=== PATIENT | male | born 1950 | race Caucasian/White ===

== ENCOUNTER 2021-02-26 09:34 | Day surgery (SDC) | payer MEDICARE, BC, SELFPAY ==
[2021-02-26] MEDS: LACTATED RINGERS 1,000 ML 200 ML IV (09:55)
[2021-02-26 09:56] VITALS: BP 119/77; PULSE 82; RESP 18; TEMP 36.5; O2SAT 98; BMI 20.4
--- NOTE | 2021-02-26 11:02 | PM.HP.1 ---
History of Present Illness History of Present Illness Date Patient Seen: 02/26/21 Time Patient Seen: 11:02 Chief complaint: SDC Narrative: The patient presents for colorectal sreening. Most recent colonoscopy 11 years ago normal, prior to this had colonic polyps. No personal or family history of colon cancer. On further history denies any recent gastrointestinal symptoms. No nausea, vomiting, abdominal pain, loss of appetite, unexplained weight loss, change in bowel habits, diarrhea, constipation, melena, hematochezia, or bright red blood per rectum. Patient History Surgical History History of cataract removal with insertion of prosthetic lens History of vasectomy Family & Social History Family History Brother Age: 65 High cholesterol Father Age: 90 Stroke High cholesterol Grandfather Heart disease Mother Hypertension Mental health problem Stroke Grandmother Heart disease Sister Age: 55 Thyroid cancer Social History: household members spouse Tobacco & Substance use: Smoking Status Never smoker alcohol intake frequency holiday/special occasion Substance Use Type does not use Meds Home Medications and Allergies Home Medications Medication Instructions Recorded Confirmed Type tamsulosin 0.4 mg capsule (Flomax) 0.4 mg PO QDAY #90 cap 11/08/16 02/26/21 Rx levothyroxine 25 mcg tablet 0.025 mg PO QAM #90 tab 03/11/17 02/26/21 Rx sodium,potassium,mag sulfates 17.5 See Rx Instructions PO .COMPLEX 01/11/21 02/26/21 Rx gram-3.13 gram-1.6 gram oral soln #354 ml (Suprep Bowel Prep Kit) Allergies Allergy/AdvReac Type Severity Reaction Status Date / Time lisinopril AdvReac Swelling Verified 02/26/21 09:47 of Lip/Tongue/Throat Review of Systems Review of Systems ROS: Yes All systems reviewed with the patient and are negative except as otherwise documented Exam Vital Signs (past 8 hours): - 02/26/21 09:56 Temperature 97.7 F Pulse Rate 82 Respiratory Rate 18 Blood Pressure 119/77 Pulse Oximetry 98 Oxygen Delivery Method Room Air Narrative Exam Narrative: GENERAL-well developed adult male, BMI 20 no acute distress HEENT-no scleral icterus, hearing intact NECK-no JVD, trachea midline CVS- regular rate, no peripheral edema RESP-unlabored respiratory effort, no audible wheezing GI-soft, nontender nondistended MSK-no cyanosis or clubbing, extremities without deformity SKIN-warm, dry NEURO-alert and oriented, no focal deficits PYSCH-Appropriate mood and affect Assessment & Plan Assessment & Plan narrative: The patient requires colorectal screening and colonoscopy is recommended. Technical details were discussed. Risks, benefits, alternatives explained. Risks including but not limited to myocardial infarction, aspiration, bleeding, pain, missed lesion, incomplete examination, need for further radiographic studies, colonic perforation, and need for major abdominal surgery were discussed. All questions were answered to their satisfaction, and they are in agreement with this plan.
[2021-02-26] MEDS: fentaNYL 250 MCG/5 ML INJ IV (11:13)
[2021-02-26] MEDS: MIDAZOLAM 5 MG/5 ML VIAL IV (11:23)
--- NOTE | 2021-02-26 11:34 | PM.OP.ENDO ---
Operative Date/Time/Diagnoses Date of procedure: 02/26/21 Time of procedure: 11:34 Pre-op diagnosis: Screening colonoscopy Post-op diagnosis: same Procedure & Clinicians Study performed: Colonoscopy Same procedure as scheduled: Yes Indications: Screening Surgeon: Carlo Peoples Procedure Notes Procedure in detail: Medications: Conscious sedation using 5mg IV midazolam and 100mcg IV of fentanyl The history and physical was performed/updated and the patient is ASA class is 2. The procedure was discussed in detail with the patient. Potential risks complications including infection, bleeding, missed diagnosis, perforation, need for surgery, and were explained. Their questions were answered and informed consent was obtained. Patient was brought to the procedure room and placed standard monitoring equipment. The patient's vital signs were monitored continuously throughout the entire procedure. Prior to starting time-out was performed. The patient was placed in the left lateral recumbent position. Procedural sedation was administered. Examination began with a thorough inspection of the perianal area there was no evidence of fissures, fistulae, external hemorrhoids or cutaneous malignancy. The colonoscopy scope was then placed into the anal canal and was advanced to the cecum, which was identified by the ileocecal valve, the appendiceal orifice and the confluence of the taenia. The scope was then slowly withdrawn examining colon thoroughly in all directions, irrigating it of any residual stool. FINDINGS 1. No masses or polyps 2. Normal healthy colon 3. Grade 1 internal hemorrhoids The patient tolerated the procedure well. They will be discharged once criteria are met. The prep was of good/excellent quality. The withdrawl time was 6 minutes. The sedation time was 20 minutes. Specimen(s): none sent Complications: none Impression: normal colonoscopy Post-procedure Recommendations: Colonscopy in 10 years Disposition: same day surgery
[2021-02-26 11:39] VITALS: BP 105/65; PULSE 62; RESP 14; TEMP 36.8; O2SAT 95
[2021-02-26 11:42] VITALS: PULSE 71; RESP 16; O2SAT 94
[2021-02-26 11:44] VITALS: BP 99/65; PULSE 68; RESP 14; TEMP 36.8; O2SAT 95
== END 2021-02-26 12:03 | disposition home or self-care (01) ==
PROVIDERS: PCP Family Medicine; Referring Provider Surgery; Visit Provider Surgery
PROC: 0DJD8ZZ Inspection of Lower Intestinal Tract, Via Natural or Artificial Opening Endoscopic (ICD-10-PCS; CPT 45378; principal; 2021-02-26 10:45)
DX: Z12.11 Encounter for screening for malignant neoplasm of colon (principal); Z86.010 Personal history of colon polyps; K64.0 First degree hemorrhoids
CPT/HCPCS: G0105; 99152; J2250; J3010

== ENCOUNTER → 2023-10-29 15:18 | Outpatient (CLI) | payer MEDICARE, BC, SELFPAY ==
--- NOTE | 2023-10-29 15:20 | DI.MRI.S_ITS ---
PROCEDURE: MR PELVIC PROSTATE PROTOCOL INDICATIONS: Elevated PSA TECHNIQUE: Coronal HASTE, axial T1 FSE with fat saturation, 3-plane nonbreath-hold T2 FSE. After the administration of contrast, dynamic axial, delayed axial and coronal VIBE or 2-D FLASH with fat saturation through the pelvis. Diffusion weighted imaging and ADC was performed. COMPARISON: None. FINDINGS: Image quality: Diffusion weighted and dynamic contrast enhanced images are diagnostic. Prostate: Gland size is 3.6 x 4.4 x 4.3 cm; ellipsoid gland volume is 35 mL. Lesion 1: Location: Right mid depth lateral transition zone at the mid gland level, on axial series four, image 12 and ADC series 24, image 12. Size: 1.1 cm. Measured on ADC map. T2W signal: Isointense to remainder of transition zone, much of which appears diffusely mildly hypointense. There is suggestion of partial encapsulation on axial images. DWI signal: Moderately hyperintense ADC signal: Markedly hypointense Enhancement: No Extracapsular extension: No PI-RADS score: Two, probable BPH nodule. Genitourinary system: Bladder wall thickness is normal. Distal ureters are non distended. Bowel and peritoneum: No pathologic free pelvic fluid. Inferior colon and small bowel loops are normal in caliber. Nodes and vessels: No pelvic or inguinal adenopathy by size criteria. Iliac vessels are normal in caliber. Soft tissues: No inguinal hernias. Bones: Marrow demonstrates normal overall signal, without lesions to suggest metastases. IMPRESSION: There is a single 1.1 cm right transition zone lesion which demonstrates unique restricted diffusion, but no significant T2 hypointensity. Given possible partial encapsulation, this is most likely a BPH nodule, PI-RADS two. Given overall mild diffuse T2 hypointensity in a normal-sized gland, multi quadrant TRUS biopsies may be useful. No pelvic lymphadenopathy by size criteria. No aggressive osseous abnormality. Dictated by: Yoly Dahl M.D. on 10/30/2023 at 12:17 Approved by: Yoly Dahl M.D. on 10/30/2023 at 12:33
== END ==
LOC: MRI 15:19
PROVIDERS: PCP Family Medicine; Referring Provider Specialist; Visit Provider Specialist
DX: R97.20 Elevated prostate specific antigen [PSA] (principal)
CPT/HCPCS: 72197; A9579

== ENCOUNTER 2024-04-29 10:28 | Inpatient (IN) | payer MEDICARE, BC, SELFPAY ==
[2024-04-26 11:19] VITALS: BMI 20.3
[2024-04-27] VITALS (13 sets, daily range): BP systolic 108–159; BP diastolic 64–102; PULSE 72–93; RESP 2–14; TEMP 36.4–36.6; O2SAT 92–99; BMI 20.3
--- NOTE | 2024-04-27 | PATH_ITS ---
[facility] Accession Number: [id number] No. of containers..01 Tissue . 01 Material submitted: . prostate - PROSTATE CHIPS . 01 Diagnosis: PROSTATE CHIPS (3 GRAMS), TRANSURETHRAL RESECTION: Benign prostatic hyperplasia. MRV 04/29/2024 1632 Local . 01 Electronically signed: . Bettina Rivera MD, Pathologist NPI- [id number] . 01 Gross description: . Received in formalin with two patient identifiers and prostate chips, are multiple [place] rubbery soft tissue fragments admixed with hemorrhagic material (3 grams, 5.0 x 3.1 x 1.3 cm). No lesions are identified. The specimen is submitted entirely in A1-A4. ([id number]) /MRV 04/28/2024 1418 Local . 01 Pathologist provided ICD-10: N40.0 . 01 CPT . 137015 Specimen Comment: A courtesy copy of this report has been sent to [phone] Performed at: [address] [address], [place], [place] [id number] MD Flo Turner MD Phone: [phone]
--- NOTE | 2024-04-27 13:03 | PM.PREOP ---
Pre-operative Note COVID-19 COVID-19 status: Not tested Interval Note History & Physical reviewed/Exam performed by Physician: Yes Changes to H&P: No
[2024-04-27] MEDS: CEFAZOLIN 2 GM/100 ML PREMIX 100 ML IV (14:10)
--- NOTE | 2024-04-27 14:23 | SUR.OPER ---
Lithotomy on padded OR bed, head on pillow, arms secured on padded arm boards at <90 degrees abduction. Legs secured in padded yellow fins stirrups.
--- NOTE | 2024-04-27 15:49 | SUR.PREOP ---
Apologized to patient for delay. Warm blankets provided.
[2024-04-27] MEDS: LACTATED RINGERS 1,000 ML 21 ML IV (16:15)
--- NOTE | 2024-04-27 18:09 | SUR.PREOP ---
Went to waiting room to update regarding surgical complication and delay. V/U. Warm blankets given to and provided some ice water.
[2024-04-27 20:28] LABS: Hematocrit 42.1 % (41-53); Hemoglobin 14.1 g/dL (13.5-17.5); Mean Corpuscular HGB Conc 33.5 % (30-36); Mean Corpuscular Hemoglobin 31.8 PG (26-34); Mean Corpuscular Volume 94.8 fL (80-100); Platelet Count 159 X10^3/uL (150-400); Red Blood Cell Count 4.44 X10^6/uL (4.5-5.9); Red Cell Distribution Width 13.6 % (11.6-14.8); White Blood Cell Count 14.6 X10^3/uL (4.5-11.0)
[2024-04-27] MEDS: ACETAMINOPHEN IV 1,000 MG/100 ML VIAL 400 MG IV (20:38)
[2024-04-27 20:41] LABS: BUN Creatinine Ratio 14.6 (6-22); Blood Urea Nitrogen 13 mg/dL (9-20); Calcium 7.3 mg/dL (8.4-10.2); Carbon Dioxide 20 mmol/L (22-32); Chloride 111 mmol/L (98-107); Estimated Glomerular Filt Rate > 60 mL/min (>60); Glucose 131 mg/dL (80-110); Sodium 138 mmol/L (137-145)
[2024-04-27 20:44] LABS: HEMOLYSIS 121 (0-50)
[2024-04-27] MEDS: ONDANSETRON 4 MG/2 ML INJ IV (20:47)
[2024-04-27] MEDS: HYDROMORPHONE 1 MG INJ 0.5 MG IV (20:49)
[2024-04-27] MEDS: MORPHINE 2 MG/ML INJ IV (22:03)
--- NOTE | 2024-04-27 22:03 | PM.OP.1 ---
Procedure & Clinicians Procedure: 1. Aquablation 2. Transrectal ultrasound of prostate 3. Transurethral resection/fulguration of prostate 4. Exploratory laparotomy with evacuation of peritoneal fluid and repair of bladder perforation Same procedure as scheduled: No (At end of Aquablation bladder perforation was discovered) Indications: This 74-year-old male presented with complaints of profound bladder outlet obstruction, benign prostatic hyperplasia with lower urinary tract symptoms. He was worked up and found to be a excellent candidate for Aquablation. Details of his workup is outlined in the history of present illness of his admission H&P. With regard to the exploratory laparotomy and evacuation of peritoneal fluid with repair of bladder perforation at the end of the Aquablation the irrigation characteristics changed and with investigation a bladder perforation was noted on the posterior lateral left bladder. The abdomen also appeared to be tense raising the Specter of an intraperitoneal perforation. There was no obvious inciting cause for the perforation. No difficulty with the procedure. Continuous-flow scopes were used throughout. Surgeon: Jorge Soria Bandoleer Straightener Stamper: Aki Hernandez Anesthesia Type: General Operative Notes Findings: Findings: Urethral meatus was normal urethra was normal along its length with normal mucosa. The sphincter was well coapted in the prostate exhibited trilobar obstructive character with some bulging into the bladder. The prostate had previously been measured at approximately 40 g. The ureteral orifices were normal position with clear efflux and at the end of Aquablation were intact and uninvolved. Prostatic fossa was also widely patent and hemostasis was good. As noted above as the procedure was ending prostate had been resected the irrigation characteristics that his the outflow seemed to change. A catheter was placed with the aid of a cath guide and it also did not irrigate as I expected therefore cystoscopy was performed and a perforation was noted in the posterolateral left slightly cephalad bladder. It was linear and proximally 2-2-1/2 cm in length running parallel to the cephalad caudad axis. At the time of exploratory laparotomy there was a preponderance of clear fluid in the peritoneum which was evacuated. There was no bloody fluid observed. And again with the bladder open the linear defect was noted and was obviously intraperitoneal. Closure Type: primary Specimen(s): none sent (Prostate chips) Prosthetic devices, grafts, tissues, transplants, or devices: 24 Macanese three-way 30 cc lucia hematuria catheter was left in place through the urethra prostate and into the bladder with 30 cc in the balloon. Estimated Blood Loss (mL): 100 Procedure in detail: Procedure in detail: After informed consent was obtained, the patient was identified and brought to the operating room where he is placed in a supine position on the table once there anesthesia was induced and maintained. Ensuring an adequate level of anesthesia the patient was transitioned to the lithotomy position where he was prepped for Transurethral procedure. After prepping, ensuring an adequate level of anesthesia, time-out, administration of IV antibiotics the truss stepper was mounted to the articulating arm which was secured to the OR bed. The ultrasound probe was then attached to the stepper. The patient then had 60 cc of ultrasound gel instilled within the rectum and the ultrasound probe was inserted. It was then checked for centering and alignment in both the transverse and sudden views. The bladder neck verumontanum and widest portion of the prostate were observed. With the ultrasound aligned centered in inappropriate position the patient was then draped in his sterile fashion. At this point the 24 Macanese aqua beam handpiece was inserted under direct vision through the urethra prostate and into the bladder where cystoscopy was performed. Asked the hand piece was inserted under live ultrasound the external sphincter verumontanum bladder neck were again observed and their position noted. The aqua beam handpiece was secured to the handpiece articulating arm. Confirmed alignment of the Aquablation handpiece and ultrasound probe to be parallel and colinear was performed. The Aquablation beam nozzle was centered and anterior to the bladder neck. The cystoscope was then retracted and the verumontanum and external sphincter once again visualized. The tip of the scope was positioned proximal to the external sphincter. The alignment of the ultrasound probe and Aquablation handpiece was once again confirmed and compression applied with a truss probe. Horizontal alignment of the handpiece water jet was then performed. The treatment zones were then planned using real-time ultrasound to visualize the contour shape and radial angles needed to treat the prostate. This was done in the transverse view. In the longitudinal view or sagittal view the aqua beam nozzle was identified and the position registered with the software. The length of treatment was also then. Again in the longitudinal the contours of resection were marked and treatment plan identified. And again the bladder neck and verumontanum were marked and confirmed in the treatment contour plan. With the Aquablation treatment plan in place ensuring the patient patient was not going to move the Aquablation resection was then started and completed with the veru zone sparing performed. Total time for this initial pass was approximately 2 minutes 39 seconds. A 2nd pass was performed with no change in the contour or radial angles. Again resection time was approximately 2 minutes 39 seconds. At this point the cystoscope was rolled forward to the tip of the aqua beam handpiece in the aqua beam handpiece was looked out. The resectoscope was then put in place under direct vision. Ellik evacuator was used to evacuate any clot. The level and position of the ureteral orifices were noted and the bladder neck was resected from approximately the 3 o'clock to 9 o'clock position points of bleeding controlled with the electrocautery. There appeared to be some anterior redundant tissue which was resected opening up the channel. Points of bleeding were controlled with the electrocautery. At this point Ellik evacuator was used to evacuate the chips and any remaining clot. The urine was clear to light pink in color. At this point the scope was again inserted and the ureteral orifices visualized appeared to be in good shape. And the scope was removed. The 22 Macanese hematuria catheter was passed through the free prostate under visualization with ultrasound and into the bladder with the balloon was filled with 45 cc of sterile saline. It was then irrigated it did not irrigate as I would expect. Therefore the catheter was removed and cystoscopy once again performed and at this point the defect or perforation was noted on the posterolateral left. I called Dr. Hernandez who came to the operating room in an expeditious fashion. The abdomen was inspected and appeared to be taught raising the suspicion of intraperitoneal fluid. Decision was made that we would need to open. The patient was undraped, shaved prepped and redraped in his sterile fashion. At this point a 20 Macanese team and tip catheter was placed into the bladder balloon filled with 10 cc of sterile water to facilitate identification of the bladder. Again ensuring an adequate level of anesthesia a lower abdominal midline incision was made and carried down through the layers of the abdominal wall in the midline. The fascia was then opened and the peritoneum carefully dissected off the posterior access of the rectus. Bookwalter retractor was put in place and points of bleeding controlled with the electrocautery. At this point due to the fluid in the abdomen it was determined that we would need to open the peritoneum and drain some of the fluid this was performed ensuring that no bowel was in the area. A new opening was made in a pool sucker inserted and clear fluid was evacuated. The peritoneal incision was extended and as much fluid is could be evacuated was evacuated. The bowel that had come out to the peritoneal opening was then returned to the intraperitoneal space in the peritoneum reapproximated with running 2-0 chromic gut suture. This significantly reduce the pressure in the abdomen. It should be noted throughout the Aquablation and at the end there were no changes in vital signs or signs of distress. At this point retractor was put in place and the peritoneum retracted in a cephalad fashion exposing the bladder. Then in a vertical fashion in the midline the bladder was opened. Retraction was once again put in place including Vicryl straight stay sutures and in the posterior bladder the linear defect was identified. It had smooth edges and was not bleeding. This defect was then reapproximated in a 2 layer fashion the detrusor was approximated with a running 2-0 Vicryl. And then the mucosa was imbricated over the top with a 2-0 chromic. Being satisfied with the closure and hemostasis and observing good urine output the retraction was readjusted and the detrusor in the midline which we had opened was reapproximated with a running 2-0 Vicryl in 2 layers. As the closure was performed the team and tip catheter was exchanged for a Lucia 24 Macanese three-way catheter. This was left in place in his closure was performed the balloon was filled with 30 cc of sterile water. Being satisfied with hemostasis and that all defects in the bladder had been closed at 1 of the Vicryl stay sutures there had been a small tear which was repaired with a [id number] of 2-0 Vicryl. Also at the proximal that is toward the bladder neck on the right lateral side was a persistent small defect in the detrusor which was also closed with an interrupted [id number] using 2-0 Vicryl. At this point the wound was irrigated. And attention turned to closure the fascia was reapproximated with a running looped 0 PDS from cephalad to the mid wound and from inferior caudad to the mid wound and then tied. No fascial defects were noted. The wound was once again irrigated and the subcutaneous tissues reapproximated with interrupted horizontal mattress of 3-0 Vicryl. Skin edges were reapproximated with anabella and dressing applied. The catheter was placed to gravity drainage and with all obvious difficulties repaired the patient was awakened transferred to the postanesthesia care unit for recovery. The patient will then be followed on the veras we will continue his Agrawal catheter for at least 3 weeks obtaining a cystogram. Complications: other (Bladder perforation) Post-operative Condition: stable Disposition: PACU Plan for aftercare: Once recovered in the PACU the patient will be transferred to the acute care for further postop recovery.
[2024-04-27] MEDS: LACTATED RINGERS 1,000 ML 42 ML IV (22:14)
[2024-04-27] MEDS: LACTATED RINGERS 1,000 ML 100 ML IV (22:45)
[2024-04-28] VITALS (9 sets, daily range): BP systolic 99–159; BP diastolic 57–97; PULSE 72–84; RESP 15–24; TEMP 36.1–37.9; O2SAT 94–99
[2024-04-28] MEDS: OXYBUTYNIN 5 MG TABLET PO (00:08)
[2024-04-28] MEDS: ONDANSETRON 4 MG/2 ML INJ IV (00:46)
[2024-04-28] MEDS: LEVOTHYROXINE 25 MCG TABLET PO (05:45)
[2024-04-28] MEDS: ACETAMINOPHEN 325 MG TABLET 650 MG PO ×3 (05:45→19:01)
[2024-04-28 06:15] LABS: Add Manual Diff / Slide Review NO; Basophils Absolute Auto 0 /uL (0-100); Basophils Percent Auto 0.1 % (0-2); Eosinophils Absolute Auto 0 /uL (0-450); Hematocrit 39.6 % (41-53); Hemoglobin 13.4 g/dL (13.5-17.5); Lymphocytes Absolute Auto 700 /uL (1100-4500); Lymphocytes Percent Auto 5.1 % (25-40); Mean Corpuscular HGB Conc 33.9 % (30-36); Mean Corpuscular Hemoglobin 31.8 PG (26-34); Mean Corpuscular Volume 93.7 fL (80-100); Monocytes Absolute Auto 1000 /uL (0-900); Neutrophils Absolute Auto 12500 /uL (1500-7000); Neutrophils Percent Auto 87.8 % (50-75); Platelet Count 166 X10^3/uL (150-400); Red Blood Cell Count 4.22 X10^6/uL (4.5-5.9); Red Cell Distribution Width 13.5 % (11.6-14.8); White Blood Cell Count 14.2 X10^3/uL (4.5-11.0)
[2024-04-28 06:31] LABS: BUN Creatinine Ratio 14.8 (6-22); Blood Urea Nitrogen 13 mg/dL (9-20); Calcium 7.6 mg/dL (8.4-10.2); Carbon Dioxide 20 mmol/L (22-32); Chloride 108 mmol/L (98-107); Estimated Glomerular Filt Rate > 60 mL/min (>60); Glucose 118 mg/dL (80-110); HEMOLYSIS < 15 (0-50); Sodium 136 mmol/L (137-145)
--- NOTE | 2024-04-28 07:36 | PC.NURSE ---
Received verbal confirmation that Albumin 12.5 g in 250 ml was given intraoperatively by both Dr Soria and RN Mariana Hanson, not documented in MAR.
--- NOTE | 2024-04-28 08:03 | P.PN_ITS ---
Subjective Subjective Date Patient Seen: 04/28/24 Time Patient Seen: 08:03 Interval history: Postop morning from Aquablation and repair of bladder perforation: 74-year-old male morning after the above reports that he has a little bit sore but feels well. Patient experience no nausea no vomiting. Is belching and feels he may have passed a little bit of gas. Patient has had clear liquids and by his 's report also has tolerated some applesauce and a bit of a brand muffin. His vital signs are stable and within normal limits. Laboratories show no significant unfavorable finding. Did discuss with him the events of yesterday and answered his questions. Is doing very well this morning. Exam Vital Signs (past 8 hours): - 04/28/24 00:10 04/28/24 00:40 04/28/24 06:00 Temperature 97 F L 98.8 F Pulse Rate 84 84 78 Respiratory Rate 16 20 Blood Pressure 159/97 H 159/97 H 114/70 Pulse Oximetry 98 98 99 Oxygen Flow Rate 0 0 0 Oxygen Delivery Method Room Air Oxygen Flow Rate 0 Narrative Exam Narrative: Exam: Patient is awake alert and oriented wearing corrective lenses lying in his bed appearing comfortable. Lungs slightly diminished breath sounds Cardiovascular exam: Regular rate and rhythm without murmur Abdominal exam: Soft with normal bowel sounds with some incisional tenderness, dressings in place clean dry. Agrawal catheter: With blush to perhaps slightly punch colored urine and adequate output. Extremities nontender Objective Labs 04/28/24 05:40 04/28/24 05:40 Labs: Laboratory Results - last 24 hr 04/27/24 04/28/24 20:20 05:40 WBC 14.6 H 14.2 H RBC 4.44 L 4.22 L Hgb 14.1 13.4 L Hct 42.1 39.6 L MCV 94.8 93.7 MCH 31.8 31.8 MCHC 33.5 33.9 RDW 13.6 13.5 Plt Count 159 166 Neut % (Auto) 87.8 H Lymph % (Auto) 5.1 L [place] % (Auto) 7.0 Eos % (Auto) 0.0 L Baso % (Auto) 0.1 Neut # (Auto) 86165 H Lymph # (Auto) 700 L [place] # (Auto) 1000 H Eos # (Auto) 0 Baso # (Auto) 0 Sodium 138 136 L Potassium 5.0 4.0 Chloride 111 H 108 H Carbon Dioxide 20 L 20 L BUN 13 13 Creatinine 0.89 0.88 Estimated GFR > 60 > 60 BUN/Creatinine Ratio 14.6 14.8 Glucose 131 H 118 H Calcium 7.3 L 7.6 L PFSH Medical History (Updated 04/28/24 @ 08:08 by Jorge Soria MD) Bladder outlet obstruction Elevated PSA BPH w urinary obs/LUTS Migraine Surgical History Hx of circumcision History of intraocular lens implant Hx of vitrectomy Hx of detached retina repair Hx of cystoscopy History of vasectomy History of cataract removal with insertion of prosthetic lens Family History Brother Age: 68 High cholesterol Father Age: 93 Stroke High cholesterol BPH (benign prostatic hyperplasia) Grandfather Heart disease Mother Hypertension Mental health problem Stroke Grandmother Heart disease Sister Age: 58 Thyroid cancer Social History marital status: number of children: 1 household members: spouse occupational status: other Smoking Status: Never smoker alcohol intake: current caffeine: Yes Type(s) of exercise: walking and bicycling frequency: daily Assessment & Plan Assessment and plan (1) BPH w urinary obs/LUTS: Status: Acute (2) Bladder perforation, intraoperative: Status: Acute Plan Assessment and plan: 1. Patient doing well postop morning. Vitals and laboratories in good condition. Pain well controlled. Good urine output of excellent color. 2. Plan: Incentive spirometry Regular diet Saline lock IV fluids Up out of bed and ambulate DVT prophylaxis Time-Based Coding :: [TOTAL MINUTES] spent with patient and on the chart (including review of chart, obtaining history, exam, reviewing outside data, placing orders, documenting exam and treatment plan, and counseling patient) on [DATE].
[2024-04-28] MEDS: OXYCODONE/ACETAMINOPHEN 5/325 TABLET 1 TAB PO (09:36)
[2024-04-28] MEDS: TAMSULOSIN 0.4 MG CAPSULE PO (09:36)
[2024-04-28] MEDS: MORPHINE 2 MG/ML INJ IV (11:39)
--- NOTE | 2024-04-28 14:07 | CM.DANOTE ---
Initial DCP Assessment Vist Note Reviewed EMR and team rounds for status updates. Met with pt and spouse at bedside to introduce self and role, pt was found to be alert/oriented, resting in bed, he made it clear he was not interested in engaging with this WHITEWASHER at this time. Pt lives independently at baseline with is in their own home on [address]. His will transport him back home once he has been medically cleared for home d/c, anticipated for 04/29/24. They deny any d/c assistance or needs at this time. Payor: Medicare Attending: Dr. Soria Pt is a 74 year-old M post-op day 1 from an aquablation procedure. He has a hx of an obstructing prostate and urinary retention. He did have a small complication during surgery in which his bladder was nicked, however he is otherwise doing well postoperatively. DCP will continue to monitor for any further d/c needs, he may need a medical ferry pass for the trip home, however it is encouraged that they make a reservation a head of time. Discharge Planning/Care Management CM Discharge Assessment Start: 04/28/24 14:04 Freq: Status: Active Protocol: Document 04/28/24 14:04 DPL (Rec: 04/28/24 14:06 DPL [id number]) Discharge Planning Assessment Assigned Dry End Tester KAREN Cohen Advance Directives? Yes Advance Directives on File No History Provided By Patient,Family Member,Medical Record Has Patient been admitted in last 30 No days? Prior Living Arrangements House Household Members spouse Type of transporation used prior to Drives own vehicle admit Independent with ADL's Yes Is patient alert and oriented? Yes Comment N/A Caregiver for Another No Comment OP Urology f/u Barriers to Discharge No Discharge Plan Home Referrals Initiated None needed Whiteboard Updated in Patient Room with Yes name and ext. # of Dry End Tester Review Status In Process Please Provide Date Initial DC 04/28/24 Assessment Was Performed Pre-Anesthesia Assessment Start: 04/26/24 11:19 Freq: Status: Active Protocol: Document 04/26/24 11:19 LB (Rec: 04/26/24 11:24 LB [id number]) Pre-Anesthesia Assessment PAC Comment 04/26/24 Chart review. Patient Information Reviewed Via Chart Review Diagnostic Results Urinalysis Comment 03/26/24 at . Primary Care Provider Stephanie Rossi Seen Specialist in Last 12 Months Yes Specialist Seen Urologist Primary Language Brazilian Preferred Language Brazilian Outside Physical Damage Appraiser Required No Height 170.18 cm Weight 58.967 kg Body Mass Index (BMI) 20.3 Anesthesia Review Requested No Cabinet And Trim Installer No Smoking Status Never smoker Hx Sleep Apnea No CPAP/BIPAP use not prescribed Currently Taking a Beta Krysten No Anti-Coagulant Therapy No Cardiac Testing No Hx Pacemaker/ICD No Cardiac Clearance Received Not Applicable Chronic UTI No Urinary Catheter Present No Diabetes No Presence of External or Internal Medical Yes: Bilat IOL. Devices Marital Status Lives With spouse Patient Discharge Plan Description Return Home Emergency Contact Name Luiza Mcmullen-Stonealysha - Emergency Contact Advance Directives? Yes Advance Directives on File No
[2024-04-28] MEDS: DOCUSATE 100 MG CAPSULE PO (21:25)
[2024-04-28] MEDS: OXYCODONE IR 5 MG TABLET PO (21:25)
[2024-04-28] MEDS: polyethylene glycoL 3350 17 GM POWD.PACK PO (21:25)
[2024-04-29 02:03] VITALS: BP 115/74; PULSE 69; RESP 20; TEMP 37.4; O2SAT 92
[2024-04-29] MEDS: OXYBUTYNIN 5 MG TABLET PO ×3 (03:30→18:27)
[2024-04-29] MEDS: OXYCODONE IR 5 MG TABLET PO (03:30)
[2024-04-29] MEDS: LEVOTHYROXINE 25 MCG TABLET PO (06:38)
--- NOTE | 2024-04-29 08:00 | P.PN_ITS ---
Subjective Subjective Date Patient Seen: 04/29/24 Time Patient Seen: 08:00 Interval history: Morning postop day 2: Patient reports that he had good night required a couple of pain pills last night but is finding that the pain is well controlled. Patient is now passing gas. Feels a little bit bloated. Has no increase in pain his vital signs have been stable and within normal limits. He is tolerating his diet so far and urine has cleared to a light pink and it appears that the urine output has been adequate. Patient has been ambulating using in his in his spirometer. We will see how things go and patient we will likely go home later today unless things change on exam abdomen is soft none tender except for incisional tenderness and normal bowel sounds. Extremities are nontender dressing is in place clean and dry in his incision appears intact. Exam Vital Signs (past 8 hours): - 04/29/24 02:03 Temperature 99.4 F Pulse Rate 69 Respiratory Rate 20 Blood Pressure 115/74 Pulse Oximetry 92 Oxygen Flow Rate 0 Oxygen Delivery Method Room Air Oxygen Flow Rate 0 Objective Labs 04/28/24 05:40 04/28/24 05:40 [facility] Medical History (Updated 04/28/24 @ 08:08 by Jorge Soria MD) Bladder outlet obstruction Elevated PSA BPH w urinary obs/LUTS Migraine Surgical History Hx of circumcision History of intraocular lens implant Hx of vitrectomy Hx of detached retina repair Hx of cystoscopy History of vasectomy History of cataract removal with insertion of prosthetic lens Family History Brother Age: 68 High cholesterol Father Age: 93 Stroke High cholesterol BPH (benign prostatic hyperplasia) Grandfather Heart disease Mother Hypertension Mental health problem Stroke Grandmother Heart disease Sister Age: 58 Thyroid cancer Social History marital status: number of children: 1 household members: spouse occupational status: other Smoking Status: Never smoker alcohol intake: current caffeine: Yes Type(s) of exercise: walking and bicycling frequency: daily Assessment & Plan Assessment and plan (1) Bladder outlet obstruction: Status: Acute (2) Bladder perforation, intraoperative: Status: Acute (3) BPH w urinary obs/LUTS: Status: Acute Plan Assessment and plan: Postop day 2. Patient doing well progressing as expected. We will increase ambulation today continue incentive spirometry. Patient is up and out of bed. We will check back later today and anticipate that the patient will likely be discharged to home. Instructions will be given at that time regarding the care of his incision in his Agrawal catheter which he will keep for 3 weeks. We will obtain a cystogram prior. Time-Based Coding :: [TOTAL MINUTES] spent with patient and on the chart (including review of chart, obtaining history, exam, reviewing outside data, placing orders, documenting exam and treatment plan, and counseling patient) on [DATE].
[2024-04-29] MEDS: polyethylene glycoL 3350 17 GM POWD.PACK PO (09:45)
[2024-04-29] MEDS: DOCUSATE 100 MG CAPSULE PO (09:45)
[2024-04-29] MEDS: ACETAMINOPHEN 325 MG TABLET 650 MG PO ×2 (09:45→15:43)
[2024-04-29] MEDS: TAMSULOSIN 0.4 MG CAPSULE PO (09:45)
[2024-04-29 12:09] VITALS: BP 149/90; PULSE 72; RESP 18; TEMP 37.7; O2SAT 95
--- NOTE | 2024-04-29 13:21 | CM.DPC ---
DCP Cont. Reviewed EMR and team rounds for status updates. Pt has been medically cleared for home d/c. No further d/c needs/assistance indicated at this time.
[2024-04-29 15:43] VITALS: TEMP 37.6
--- NOTE | 2024-04-29 16:57 | PM.DS.1 ---
History of Present Illness History of Present Illness Date Patient Seen: 04/29/24 Time Patient Seen: 16:57 Date of Onset of Symptoms: 04/27/24 Chief complaint: BPH lower urinary tract symptoms/bladder perforati Narrative: This 74-year-old male had benign prostatic hyperplasia lower urinary tract symptoms and presented for Aquablation. This appeared to go well however at the end of the procedure was discovered there was a bladder perforation and the patient underwent urgent/emergent exploratory laparotomy with repair of bladder perforation. He has been followed on the [place] and has progressed to the point where he could be discharged. At this point he has tolerating a regular diet, passing gas, has vital signs which are stable and within normal limits. He is ambulating without difficulty his pain is well controlled and his incision is intact. Patient will be discharged to home. Discharge Providers Provider Date of admission: 04/29/24 10:28 Discharge Date: 04/29/24 Primary care physician: Stephanie Rossi MD Discharge provider: Jorge Soria MD Summary Hospital Course Discharge Diagnosis: 1. Benign prostatic hyperplasia with lower urinary tract symptoms 2. Bladder perforation intraperitoneal requiring repair. Hospital Course: Again the patient was admitted to the hospital underwent Aquablation without incident with found to have at the end of the procedure a bladder perforation on the posterior left. Patient underwent laparotomy exploratory and repair of bladder laceration as well as evacuation of fluid from the peritoneal cavity. Patient was then followed on the [place] where he recovered. And starting with liquid diet he was advanced to a regular diet which he tolerated. He is passing gas. He received pulmonary toilet, assistance with ambulation, pain medicines and at this point is saturating well ambulating without difficulty, passing gas, tolerating a regular diet and is in a place for discharge. Time Spent with Patient Time spent: Less than 30 minutes Exam Vital Signs (past 8 hours): - 04/29/24 12:09 04/29/24 15:43 Temperature 99.9 F H 99.7 F H Pulse Rate 72 Respiratory Rate 18 Blood Pressure 149/90 H Pulse Oximetry 95 Oxygen Flow Rate 0 Oxygen Delivery Method Room Air Oxygen Flow Rate 0 Narrative Exam Narrative: General: This is an awake, alert, oriented male wearing corrective lenses who is sitting in a bedside chair appearing comfortable. Lungs: Normal breath sounds slightly diminished at the base Cardiovascular exam: Regular rate and rhythm without murmur Abdominal exam: Soft, normal bowel tones, dressing in place clean and dry, incisional tenderness only. Genitourinary exam: Agrawal catheter in place draining clear urine normal penis testicles. Extremities no edema and nontender Objective Labs 04/28/24 05:40 04/28/24 05:40 [facility] Medical History Bladder outlet obstruction Elevated PSA BPH w urinary obs/LUTS Migraine Surgical History Hx of circumcision History of intraocular lens implant Hx of vitrectomy Hx of detached retina repair Hx of cystoscopy History of vasectomy History of cataract removal with insertion of prosthetic lens Family History Brother Age: 68 High cholesterol Father Age: 93 Stroke High cholesterol BPH (benign prostatic hyperplasia) Grandfather Heart disease Mother Hypertension Mental health problem Stroke Grandmother Heart disease Sister Age: 58 Thyroid cancer Social History marital status: number of children: 1 household members: spouse occupational status: other Smoking Status: Never smoker alcohol intake: current caffeine: Yes Type(s) of exercise: walking and bicycling frequency: daily Discharge Assessment & Plan Assessment and Plan Assessment: Assessment and plan: Patient is in a position to be discharged to home having recovered he feels as if he wants to go home. Please see details above. Patient will return to my off as noted below. Plan of Treatment: Plan: Patient to be discharged to home. He will be discharged to home with his Agrawal catheter he has been taught care and use of the Agrawal catheter. Patient is to ambulate, continue to use his incentive spirometer, participate in sponge baths only. Patient is to follow up my office next week for wound check and postoperative check. Patient should continue Colace and stool softeners, continue his regular diet, expect some blood in his urine with ambulation. He will return in approximately 10 days for staple removal and then in approximately 3 weeks with a cystogram and possible catheter removal. Discharge Plan Discharge Plan Patient Disposition: Home Provider Discharge Comment: Patient should continue to use his incentive spirometer. At home the patient should increase his fluid intake to ?flush things through?. Patient should take stool softeners and avoid constipation. Patient is to participate in no heavy lifting vigorous or strenuous activities. Patient may do sponge baths only until released by me. Patient should expect some blood in his urine and perhaps a few small clots. Patient should ambulate and move his lower extremities and ankles to prevent blood clots. Patient should clean around his catheter with a 50 50 mix of hydrogen peroxide and water and apply bacitracin b.i.d. and as needed. Discharge orders & Medications Prescriptions: New oxycodone 5 mg tablet 5 mg PO Q8H PRN (Reason: pain (scale score 7-10)) Qty: 10 0RF oxybutynin chloride 5 mg tablet 5 mg PO BID-TID PRN (Reason: bladder spasms) Qty: 14 0RF ciprofloxacin HCl 500 mg tablet 500 mg PO BID Qty: 10 0RF docusate sodium [Colace] 100 mg capsule 100 mg PO BID Qty: 60 0RF Continued levothyroxine 25 MCG tablet 0.025 mg PO QAM Qty: 90 1RF tamsulosin [Flomax] 0.4 mg capsule 0.4 mg PO DAILY Rx Instructions: Take two tablets at bedtime latanoprost (PF) 0.005 % drops 1 drp EYE-BOTH DAILY Qty: 7.5 0RF Follow up/Referrals: Stephanie Rossi MD [Primary Care Provider] - Jorge Soria MD [Physician] - Diet/Activity/Treatments Diet: Diet as Tolerated Catheter: 3-way Agrawal Visit Report/Discharge Packet Stand Alone Forms: Patient Portal/API, Stroke Signs & Symptoms Discharge Data Primary Care Provider: Stephanie Rossi
== END 2024-04-29 18:43 | disposition home or self-care (01) | DRG 713 ==
LOC: OR 11:58 → AC 11:58
PROVIDERS: Nurse Anesthetist, Certified Registered; Admitting Provider Urology; PCP Family Medicine; Referring Provider Urology; Visit Provider Urology
PROC: 0VT08ZZ Resection of Prostate, Via Natural or Artificial Opening Endoscopic (ICD-10-PCS; CPT 0421T; principal; 2024-04-27 13:30)
DX: N40.1 Benign prostatic hyperplasia with lower urinary tract symptoms (principal); N13.8 Other obstructive and reflux uropathy; N99.71 Accidental puncture and laceration of a genitourinary system organ or structure during a genitourinary system procedure; R97.20 Elevated prostate specific antigen [PSA]; N32.0 Bladder-neck obstruction
CPT/HCPCS: 36415; 80048; 81002; 85025; 85027; 99214; C2596; J0136; J0690; J1171; J2270; J2405; J2704; J3010; J3490

== ENCOUNTER 2024-04-30 10:54 | Emergency (ER) | payer MEDICARE, BC, SELFPAY ==
[2024-04-27 22:00] VITALS: BMI 20.3
[2024-04-30 11:35] VITALS: BP 161/90; PULSE 71; RESP 16; TEMP 36.1; O2SAT 98
--- NOTE | 2024-04-30 11:40 | DI.US.S_ITS ---
PROCEDURE: US EXTREMITY NONVASC LOWER LT INDICATIONS: recent surgery.swelling in leg pain behind knee TECHNIQUE: Real-time scanning was performed of the left extremity , with image documentation. COMPARISON: None. FINDINGS: Deep venous structures are widely patent. There is a fluid collection in the popliteal fossa. IMPRESSION: No deep venous thrombosis. Fluid collection the posterior fossa possibly Cleveland cyst versus joint effusion. Dictated by: Suzi Chanel M.D. on 04/30/2024 at 12:50 Approved by: Suzi Chanel M.D. on 04/30/2024 at 12:51
--- NOTE | 2024-04-30 13:57 | ED.EXTPRO ---
HPI - Extremity Problem General Chief complaint: Extremity Problem,Nontraumatic Stated complaint: post op issues, l leg swelling Time Seen by Provider: 04/30/24 13:56 Source: patient Mode of arrival: Family Vehicle History of Present Illness HPI Narrative: Patient is a 74-year-old male with recent alcohol ablation of the prostate and bladder perforation. Underwent emergent exploratory laparotomy with repair was discharged from the hospital yesterday presents today with left leg pain. He reports some swelling of his left leg and pain behind his knee. Urology Dr. Hernandez in ED to update me on patient. Concern is for DVT unfortunately due to his recent extensive surgery can not be anticoagulated. Patient denies any shortness of breath no fevers or chills reports his abdomen though still swollen is getting better he is passing some gas no nausea or vomiting. No chest pain. Overall he does feel improvement but noticed some swelling and pain behind his left leg Related Data Home Medications Medication Instructions Recorded Confirmed tamsulosin 0.4 mg capsule (Flomax) 0.4 mg PO DAILY BPH w/ LUTS 03/10/24 04/27/24 Previous Rx's Medication Instructions Recorded levothyroxine 25 mcg tablet 0.025 mg PO QAM #90 tabs 03/11/17 latanoprost (PF) 0.005 % eye drops 1 drp EYE-BOTH DAILY #7.5 mL 07/30/22 ciprofloxacin HCl 500 mg tablet 500 mg PO BID #10 tabs 04/29/24 docusate sodium 100 mg capsule 100 mg PO BID #60 caps 04/29/24 (Colace) oxybutynin chloride 5 mg tablet 5 mg PO BID-TID PRN bladder spasms 04/29/24 #14 tabs oxycodone 5 mg tablet 5 mg PO Q8H PRN pain (scale score 04/29/24 7-10) #10 tabs Allergies Allergy/AdvReac Type Severity Reaction Status Date / Time lisinopril Allergy Severe Swelling Verified 04/30/24 16:46 of Lip/Tongue/Throat Patient History Medical History Bladder outlet obstruction Elevated PSA BPH w urinary obs/LUTS Migraine Surgical History Hx of circumcision History of intraocular lens implant Hx of vitrectomy Hx of detached retina repair Hx of cystoscopy History of vasectomy History of cataract removal with insertion of prosthetic lens Family History Brother Age: 68 High cholesterol Father Age: 93 Stroke High cholesterol BPH (benign prostatic hyperplasia) Grandfather Heart disease Mother Hypertension Mental health problem Stroke Grandmother Heart disease Sister Age: 58 Thyroid cancer Social History marital status: number of children: 1 household members: spouse occupational status: other Smoking Status: Never smoker alcohol intake: current caffeine: Yes Type(s) of exercise: walking and bicycling frequency: daily Smoking Status: Never smoker alcohol intake frequency: holidays/special occasions only Substance Use Type: does not use Exam Initial Vital Signs Initial Vital Signs: Vital Signs Temperature 96.9 F L 04/30/24 11:35 Pulse Rate 71 04/30/24 11:35 Respiratory Rate 16 04/30/24 11:35 Blood Pressure 161/90 H 04/30/24 11:35 Pulse Oximetry 98 04/30/24 11:35 Oxygen Delivery Method Room Air 04/30/24 11:35 GENERAL: Alert pleasant well-appearing 74-year-old male HEENT: Head atraumatic,EOMI, pupils reactive, face symmetric, [moist] mucous membranes CARDIOVASCULAR: Regular rate and rhythm without murmurs, rubs or gallops. RESPIRATORY: Breath sounds equal bilaterally, no wheezes rales or rhonchi. ABDOMEN: Soft, dressing in place no erythema no significant distention minimally tender EXTREMITIES: Normal range of motion, no clubbing. Neurovascularly intact Left lower leg likely more edematous than the right no erythema +1 tender posterior knee. NEUROLOGICAL: Alert and oriented x4.Normal gait and speech. SKIN: Warm, dry, no laceration, no petechiae, no rashes or lesions. Course Orders Ordered: ED Orders 04/30/24 11:40 US periph venous low extrem lt Stat Vital Signs Vital signs: Vital Signs - 8 hr 04/30/24 11:35 Temperature 96.9 F L Pulse Rate 71 Respiratory Rate 16 Blood Pressure 161/90 H Pulse Oximetry 98 Oxygen Delivery Method Room Air MDM - Extremity (Nontraumatic) Imaging Data US - DVT: Radiologist's Impression: PROCEDURE: US EXTREMITY NONVASC LOWER LT INDICATIONS: recent surgery.swelling in leg pain behind knee TECHNIQUE: Real-time scanning was performed of the left extremity , with image documentation. COMPARISON: None. FINDINGS: Deep venous structures are widely patent. There is a fluid collection in the popliteal fossa. IMPRESSION: No deep venous thrombosis. Fluid collection the posterior fossa possibly Cleveland cyst versus joint effusion. Dictated by: Suzi Chanel M.D. on 04/30/2024 at 12:50 MDM Narrative Medical decision making narrative: Patient is 74-year-old male presents today with left leg pain and swelling postoperative complicated surgery. DVT study is negative and shows a Cleveland's cyst which is consistent with his pain and swelling. Long discussion with patient and he really having minimal abdominal pain eating drinking overall feels like it is getting better. He is mostly taking Tylenol with an occasional oxycodone. Does not feel like his pain is out of control. Not dizzy or lightheaded. We discussed further workup however at this time they feel comfortable with only ultrasound for rule out DVT. Encouraged him to still ambulate he reports that he is getting up and walking quite a lot. He is afebrile no concern for postoperative infection at this time. Overall he appears well and nontoxic. Discharge Plan Departure Patient Disposition: Home Clinical Impression: Cleveland's cyst of knee Instructions: Cleveland Cyst Activity Restrictions/Additional Instructions: *You have been diagnosed with Cleveland's cyst *What to do: At this time no evidence of blood clot. Continue to follow urology advice *Continue to take medications as directed *Follow up with your primary care provider in 2-3 days or call [phone] *Return to ER if you should have fever greater than 100.4 increased abdominal pain nausea vomiting or any new, worsening or concerning symptoms Prescriptions: No Action levothyroxine 25 MCG tablet 0.025 mg PO QAM Qty: 90 1RF docusate sodium [Colace] 100 mg capsule 100 mg PO BID Qty: 60 0RF ciprofloxacin HCl 500 mg tablet 500 mg PO BID Qty: 10 0RF oxybutynin chloride 5 mg tablet 5 mg PO BID-TID PRN (Reason: bladder spasms) Qty: 14 0RF oxycodone 5 mg tablet 5 mg PO Q8H PRN (Reason: pain (scale score 7-10)) Qty: 10 0RF tamsulosin [Flomax] 0.4 mg capsule 0.4 mg PO DAILY Rx Instructions: Take two tablets at bedtime latanoprost (PF) 0.005 % drops 1 drp EYE-BOTH DAILY Qty: 7.5 0RF Referrals: Stephanie Rossi MD [Primary Care Provider] - Stand Alone Forms: Patient Portal/API
[2024-04-30 15:06] VITALS: BP 149/76; PULSE 65; RESP 12; O2SAT 98
== END 2024-04-30 15:08 | disposition home or self-care (01) ==
PROVIDERS: Emergency Provider Emergency Medicine; PCP Family Medicine
DX: M71.22 Synovial cyst of popliteal space [Baker], left knee (principal); Z98.890 Other specified postprocedural states
CPT/HCPCS: 93971; 99281; 99283

== ENCOUNTER → 2024-05-17 08:52 | Outpatient (CLI) | payer MEDICARE, BC, SELFPAY ==
[2024-04-27 22:00] VITALS: BMI 20.3
--- NOTE | 2024-05-17 08:53 | DI.CT.S_ITS ---
PROCEDURE: CT CYSTOGRAM INDICATIONS: Rule out urine leak after bladder perforation TECHNIQUE: Both before and after gravity instillation of 10% Isovue contrast solution into the bladder through a Agrawal catheter, 5 mm axial images acquired from the bladder dome to the symphysis. 5 mm thick coronal and sagittal reformats were acquired. For radiation dose reduction, the following was used: automated exposure control, adjustment of mA and/or kV according to patient size. COMPARISON: None. FINDINGS: Image quality: Diagnostic. Bladder: Intraluminal contrast within the bladder. No extraluminal contrast. Agrawal catheter inflated in the urinary bladder. No perivesicular fat stranding. Distal Ureters: No abnormal distension. PELVIS: Peritoneum and Bowel: Bowel loops demonstrate normal wall thickness and caliber. No free fluid or air. Pelvic Organs: No pelvic mass. Pelvic Nodes: No enlarged lymph nodes. Miscellaneous: Trace free fluid deep to the rectus sheath. Bones: No aggressive osseous abnormality. IMPRESSION: No extraluminal contrast to suggest urine leak. Dictated by: Ernesto Saavedra M.D. on 05/17/2024 at 11:23 Approved by: Ernesto Saavedra M.D. on 05/17/2024 at 11:26
== END ==
LOC: CT 08:53
PROVIDERS: PCP Family Medicine; Referring Provider Urology; Visit Provider Urology
DX: N99.72 Accidental puncture and laceration of a genitourinary system organ or structure during other procedure (principal)
CPT/HCPCS: 72194; Q9967

== ENCOUNTER → 2024-05-18 13:45 | Outpatient (CLI) | payer MEDICARE, BC, SELFPAY ==
[2024-04-27 22:00] VITALS: BMI 20.3
== END ==
PROVIDERS: PCP Family Medicine; Visit Provider Urology
DX: N40.1 Benign prostatic hyperplasia with lower urinary tract symptoms (principal); N13.8 Other obstructive and reflux uropathy; N99.72 Accidental puncture and laceration of a genitourinary system organ or structure during other procedure
CPT/HCPCS: 87077; 87086

== ENCOUNTER → 2024-05-27 10:25 | Outpatient (CLI) | payer MEDICARE, BC, SELFPAY ==
[2024-04-27 22:00] VITALS: BMI 20.3
== END ==
PROVIDERS: PCP Family Medicine; Visit Provider Urology
DX: N99.72 Accidental puncture and laceration of a genitourinary system organ or structure during other procedure (principal); N40.1 Benign prostatic hyperplasia with lower urinary tract symptoms; N13.8 Other obstructive and reflux uropathy; Z68.1 Body mass index [BMI] 19.9 or less, adult; Z98.890 Other specified postprocedural states; R30.0 Dysuria; R82.81 Pyuria
CPT/HCPCS: 51798; 81002; 87086

== ENCOUNTER → 2024-06-17 14:22 | Outpatient (CLI) | payer MEDICARE, BC, SELFPAY ==
[2024-04-27 22:00] VITALS: BMI 20.3
== END ==
PROVIDERS: PCP Family Medicine; Visit Provider Urology
DX: N99.72 Accidental puncture and laceration of a genitourinary system organ or structure during other procedure (principal); N32.0 Bladder-neck obstruction; N40.1 Benign prostatic hyperplasia with lower urinary tract symptoms; N13.8 Other obstructive and reflux uropathy; R97.20 Elevated prostate specific antigen [PSA]
CPT/HCPCS: 51798; 81002; 87086

== ENCOUNTER → 2024-10-04 07:57 | Outpatient (CLI) | payer MEDICARE, BC, SELFPAY ==
[2024-04-27 22:00] VITALS: BMI 20.3
--- NOTE | 2024-10-04 07:59 | DI.US.S_ITS ---
PROCEDURE: US HERNIA INDICATIONS: Rt Groin hernia TECHNIQUE: Real-time focused scanning was performed of the inguinal region, with image documentation. COMPARISON: [facility], CT, CT CYSTOGRAM, 05/17/2024, 9:47. FINDINGS/IMPRESSION: Small right inguinal hernia containing fat and a small segment of bowel. Dictated by: Ernesto Saavedra M.D. on 10/04/2024 at 12:56 Approved by: Ernesto Saavedra M.D. on 10/04/2024 at 12:57
== END ==
LOC: US 07:58
PROVIDERS: PCP Family Medicine; Referring Provider Family Medicine; Visit Provider Family Medicine
DX: K40.90 Unilateral inguinal hernia, without obstruction or gangrene, not specified as recurrent (principal)
CPT/HCPCS: 76705

== ENCOUNTER → 2025-03-20 08:53 | Outpatient (CLI) | payer MEDICARE, BC, SELFPAY ==
[2024-04-27 22:00] VITALS: BMI 20.3
--- NOTE | 2025-03-20 08:55 | DI.MRI.S_ITS ---
PROCEDURE: MR CERVICAL SPINE WO CON INDICATIONS: Spondylosithesis TECHNIQUE: Noncontrast sagittal T1 spin echo and T2 fast spin echo, sagittal STIR, foraminal oblique sagittal T2 fast spin echo, and axial gradient echo or T2 fast spin echo through the cervical spine. COMPARISON: None. FINDINGS: Image quality: Excellent. Alignment and Curvature: Straightening of the normal cervical lordosis. Mild anterolisthesis of C4 on C5. Bone Marrow: Marrow demonstrates normal overall signal. Spinal Cord: Visualized spinal cord has normal size and signal. No cerebellar tonsillar herniation. Paraspinous Soft Tissues: No paravertebral masses. Prevertebral soft tissues are normal in thickness. C2-C3: No central canal or neural foraminal stenosis. C3-C4: Disc desiccation and minimal posterior disc osteophyte complex. Facet uncovertebral arthropathy. No central canal stenosis. Mild left and no right neural foraminal stenosis. C4-C5: Disc desiccation and minimal posterior disc osteophyte complex. Facet uncovertebral arthropathy. No central canal stenosis. Mild left and no right neural foraminal stenosis. C5-C6: Disc desiccation and moderate height loss. Minimal posterior disc osteophyte complex. Facet uncovertebral arthropathy. No central canal stenosis. Moderate bilateral neural foraminal stenosis. C6-C7: Disc desiccation and moderate height loss. Posterior disc osteophyte complex. Facet and uncovertebral arthropathy. No central canal stenosis. Moderate bilateral neural foraminal stenosis. C7-T1: No central canal or neural foraminal stenosis. IMPRESSION: 1. Multilevel degenerative changes of the cervical spine as described above. 2. No central canal stenosis. 3. Moderate bilateral neural foraminal stenosis at C5-C6 and C6-C7. Dictated by: Raul Arreguin M.D. on 03/21/2025 at 8:27 Approved by: Raul Arreguin M.D. on 03/21/2025 at 8:41
== END ==
LOC: MRI 08:54
PROVIDERS: PCP Family Medicine; Referring Provider Family Medicine; Visit Provider Orthopaedic Surgery
DX: M47.22 Other spondylosis with radiculopathy, cervical region (principal); M48.02 Spinal stenosis, cervical region; M43.12 Spondylolisthesis, cervical region
CPT/HCPCS: 72141

== ENCOUNTER → 2025-04-28 16:10 | Outpatient (CLI) | payer MEDICARE, BC, SELFPAY ==
[2024-04-27 22:00] VITALS: BMI 20.3
== END ==
PROVIDERS: PCP Physician Assistant; Visit Provider Urology
DX: N20.0 Calculus of kidney (principal); N40.1 Benign prostatic hyperplasia with lower urinary tract symptoms; N13.8 Other obstructive and reflux uropathy; Z87.442 Personal history of urinary calculi
CPT/HCPCS: 81002; 82365; 99213

== ENCOUNTER → 2025-05-03 08:50 | Outpatient (CLI) | payer MEDICARE, BC, SELFPAY ==
[2024-04-27 22:00] VITALS: BMI 20.3
--- NOTE | 2025-05-03 08:51 | DI.CT.S_ITS ---
PROCEDURE: CT KIDNEY URETER BLADDER (KUB) INDICATIONS: 75 y/o M w/ right flank pain, eval for stone TECHNIQUE: Axial sections were acquired from the lung bases to the pubic symphysis. Coronal and sagittal reformats were performed. For radiation dose reduction, the following was used: automated exposure control, adjustment of mA and/or kV according to patient size. COMPARISON: [facility], CT, CT CYSTOGRAM, 05/17/2024, 9:47. Outside Facility, CR, XR ABDOMEN 1V, 04/25/2025, 9:17. FINDINGS: Image quality: Diagnostic. Lower Chest: No significant findings. URINARY: Right Kidney: Punctate 1 mm nonobstructing calculus at the inferior pole the right kidney. Right Ureter: No hydroureter. Left Kidney: No stones or hydronephrosis. Left Ureter: No hydroureter. Bladder: Mild circumferential bladder wall thickening, which may be partially related to underdistention. No bladder calculus. ABDOMEN: Liver: No contour-deforming solid mass. Benign-appearing cyst in the left hepatic lobe measuring 1.0 cm. Gallbladder: No radiopaque gallstones or wall thickening. Biliary ducts: No biliary dilation. Pancreas: No ductal dilation. Spleen: Size is within normal limits. Adrenal Glands: No adrenal nodules. Stomach and Bowel: Normal colonic caliber, without significant wall thickening. Normal appendix. Small bowel loops are unremarkable. Peritoneum: No abnormal intraperitoneal fluid. No free air. Ventral Wall: Tiny fat containing periumbilical hernia.. Abdominal Nodes: No enlarged retroperitoneal or mesenteric lymph nodes. Vessels: Aorta and inferior vena cava are normal in size. Mild aortic atherosclerotic calcifications. PELVIS: Pelvic Organs: Prostate appears mildly enlarged. Pelvic Nodes: Unremarkable. Miscellaneous: Postsurgical changes from right inguinal hernia repair with mild adjacent edema or scarring. Tiny fat containing left inguinal hernia. Bones: Unremarkable. IMPRESSION: 1. Punctate nonobstructing right renal calculus. No ureteral calculus or hydronephrosis. 2. Circumferential bladder wall thickening may be secondary to underdistention versus cystitis or chronic outlet obstruction. 3. Mild prostatomegaly. 4. Postsurgical changes from right inguinal hernia repair. Approved by: Nicko Mccrary M.D. on 05/03/2025 at 9:24
== END ==
LOC: CT 08:50
PROVIDERS: PCP Physician Assistant; Referring Provider Urology; Visit Provider Urology
DX: N20.0 Calculus of kidney (principal); N40.0 Benign prostatic hyperplasia without lower urinary tract symptoms; R10.A0 Flank pain, unspecified side
CPT/HCPCS: 74176

== ENCOUNTER → 2025-06-06 15:56 | Outpatient (CLI) | payer MEDICARE, BC, SELFPAY ==
[2024-04-27 22:00] VITALS: BMI 20.3
--- NOTE | 2025-06-06 15:58 | DI.MRI.S_ITS ---
PROCEDURE: MR KNEE RT WO CON INDICATIONS: chronic knee pain TECHNIQUE: Noncontrast sagittal PD fast spin echo and T2 fast spin echo with fat saturation, sagittal 3-D FLASH with fat saturation; coronal T1 spin echo and PD fast spin echo with fat saturation, and axial PD fast spin echo with fat saturation through the knee. COMPARISON: [facility], MR, MR KNEE LT WO CON, 06/06/2025, 16:08. FINDINGS: Image quality: Excellent. Menisci: The medial and lateral menisci demonstrate normal morphology and internal signal. The meniscal root ligaments appear intact. Cruciate ligaments: The anterior and posterior cruciate ligaments appear intact. Medial structures: The medial collateral ligament appears intact. The posterior oblique ligament, semimembranosus tendon insertions, oblique popliteal ligament, and meniscocapsular junction appear intact. Visualized portions of the pes anserinus tendons appear normal. No abnormal bursal fluid. Lateral structures: The lateral collateral ligament, long and short heads of the biceps femoris tendon appear intact. The popliteus tendon appears normal; the popliteofibular ligament appears intact. The posterosuperior and anteroinferior popliteomeniscal fascicles appear intact. The arcuate and fabellofibular ligaments appear intact, on either side of the lateral inferior geniculate artery. Iliotibial band appears normal. Anterior structures: The quadriceps tendon is unremarkable. Mild tendinosis of the proximal patellar tendon. Trace deep infrapatellar bursitis. Superolateral Hoffa's fat pad edema, raising concern for patellar maltracking. Alignment of the patellofemoral compartment is anatomic. The medial and the lateral patellofemoral ligaments are intact. Bones and cartilage: The cartilage of the medial and lateral compartments are well maintained. Mild chondrosis of the patellofemoral compartment. No acute fracture. Joint space: Trace knee effusion. No popliteal cyst. 2.2 cm ganglion cyst tracking along the proximal lateral head of the gastrocnemius tendon. Popliteus vasculature is unremarkable. No intra-articular body. IMPRESSION: 1. Findings suggestive of patellar maltracking. Mild tendinosis of the proximal patellar tendon. 2. Mild chondrosis of the patellofemoral compartment. 3. 2.2 cm ganglion cyst tracking along the proximal lateral head of the gastrocnemius tendon. Limited evaluation given noncontrast exam. Dictated by: Elif Celaya M.D. on 06/06/2025 at 17:22 Approved by: Elif Celaya M.D. on 06/06/2025 at 17:30
--- NOTE | 2025-06-06 15:58 | DI.MRI.S_ITS ---
PROCEDURE: MR KNEE LT WO CON INDICATIONS: Bilateral chronic knee pain TECHNIQUE: Noncontrast sagittal PD fast spin echo and T2 fast spin echo with fat saturation, sagittal 3-D FLASH with fat saturation; coronal T1 spin echo and PD fast spin echo with fat saturation, and axial PD fast spin echo with fat saturation through the knee. COMPARISON: None. FINDINGS: Image quality: The Menisci: The medial and lateral menisci demonstrate normal morphology and internal signal. The meniscal root ligaments appear intact. Cruciate ligaments: The anterior and posterior cruciate ligaments appear intact. Medial structures: The medial collateral ligament appears intact. The posterior oblique ligament, semimembranosus tendon insertions, oblique popliteal ligament, and meniscocapsular junction appear intact. Visualized portions of the pes anserinus tendons appear normal. No abnormal bursal fluid. Lateral structures: The lateral collateral ligament, long and short heads of the biceps femoris tendon appear intact. The popliteus tendon appears normal; the popliteofibular ligament appears intact. The posterosuperior and anteroinferior popliteomeniscal fascicles appear intact. The arcuate and fabellofibular ligaments appear intact, on either side of the lateral inferior geniculate artery. Iliotibial band appears normal. Anterior structures: The quadriceps and patellar tendons appear intact. Patellar alignment is normal. No femoral trochlear dysplasia or ventral trochlear prominence. No edema in the infrapatellar fat pad. Trace deep infrapatellar bursitis. Bones and cartilage: The cartilage of the medial and lateral compartments are well maintained. The cartilage of the patellofemoral compartment is grossly well maintained. No acute fracture. Joint space: Trace knee effusion. Trace popliteal cyst. Popliteal vasculature is unremarkable. No intra-articular body. IMPRESSION: 1. Trace deep infrapatellar bursitis. 2. Trace popliteal cyst. Dictated by: Elif Celaya M.D. on 06/06/2025 at 17:13 Approved by: Elif Celaya M.D. on 06/06/2025 at 17:21
== END ==
LOC: MRI 15:58
PROVIDERS: PCP Physician Assistant; Referring Provider Physician Assistant; Visit Provider Physician Assistant
DX: M22.41 Chondromalacia patellae, right knee (principal); M67.461 Ganglion, right knee; M67.961 Unspecified disorder of synovium and tendon, right lower leg; M25.561 Pain in right knee; M25.562 Pain in left knee; G89.29 Other chronic pain
CPT/HCPCS: 73721